=== PATIENT | male | born 2000 | race Caucasian/White ===

== ENCOUNTER 2022-09-17 11:14 | Emergency (ER) | payer SELFPAY ==
[2022-09-17] MEDS ORDERED: Sterile Water 10 ML ONE (11:50)
[2022-09-17] MEDS ORDERED: CEFAZOLIN 1 GM VIAL ONE (11:50)
[2022-09-17] MEDS ORDERED: Boostrix 0.5 ML (Tdap) VIAL (>/=7 yrs of age) ONE (11:50)
[2022-09-17] MEDS ORDERED: Bacitracin 1 PK ONE (12:30)
== END 2022-09-17 12:39 | disposition home or self-care (01) ==
LOC: MADERS 11:14
DX: S61.542A Puncture wound with foreign body of left wrist, initial encounter (principal); R93.6 Abnormal findings on diagnostic imaging of limbs; F17.220 Nicotine dependence, chewing tobacco, uncomplicated; W34.09XA Accidental discharge from other specified firearms, initial encounter; Z23 Encounter for immunization
CPT/HCPCS: 90471; 90715; 96372; J0690